=== PATIENT | female | born 1950 | race Caucasian/White ===

== ENCOUNTER → 2017-06-01 12:16 | Outpatient (CLI) | payer MEDICARE, SELFPAY ==
[2017-06-01 12:44] LABS: Absolute Neutrophil Count 1.6 X10^3/uL (2.0-7.7); Basophil% 2.7 % (0-1); Eosinophil# 0.13 X10^3/uL; Eosinophils% 3.5 % (0-5); Hematocrit 38.2 % (37-47); Lymphocyte % 37.5 % (19-41); Mean Corpuscular Hgb 30.7 pg (27.0-32.0); Mean Corpuscular Volume 90.1 fL (81-99); Mean Platelet Vol. 9.8 fl (6.2-12.0); Monocyte# 0.53 X10^3/uL; Monocyte% 14.2 % (0-10); Neutrophil # 1.57 X10^3/uL (2.7-7.7); Neutrophil % 42.1 % (47-70); Platelet Count 208 K/mm3 (150-450); RBC Distribution Width CV 13.3 % (11.6-14.6); RBC Distribution Width SD 43.6 fl (35.1-43.9); Red Blood Count 4.24 M/mm3 (4.2-5.4); White Blood Count 3.7 K/mm3 (4.4-11.0)
[2017-06-01 12:45] LABS: POSITIVE COUNT NO; POSITIVE DIFFERENTIAL NO; POSITIVE MORPHOLOGY NO
[2017-06-01 12:58] LABS: AST(SGOT) 28 U/L (15-37); Alanine Aminotransfer ALT/SGPT 27 U/L (13-56); Albumin, Serum 3.5 g/dL (3.2-5.0); Alkaline Phosphatase 97 U/L (45-117); Anion Gap 7 (5-15); BUN 9 mg/dL (7-18); BUN/Creat Ratio 10.5 RATIO (10-20); Calcium,Total 8.8 mg/dL (8.5-10.1); Chloride 110 mmol/L (98-107); Creatinine, Serum 0.85 mg/dL (0.55-1.02); EST Glomerular Filtration Rate 70 mL/min (>60); Est Glom Filt Rate - Afr Amer 85 mL/min (>60); Globulin 3.4 g/dL (2.2-4.2); Glucose 92 mg/dL (74-106); Protein, Total 6.9 g/dL (6.4-8.2); Sodium Level 144 mmol/L (136-145)
== END ==
PROVIDERS: Family Provider Family Medicine; PCP Family Medicine; Visit Provider Internal Medicine Medical Oncology
DX: C50.911 Malignant neoplasm of unspecified site of right female breast (principal)
CPT/HCPCS: 36415; 80053; 85025

== ENCOUNTER → 2017-06-27 14:37 | Outpatient (CLI) | payer MEDICARE, SELFPAY ==
--- NOTE | 2017-06-27 14:45 | BI_ITS ---
MAMMOGRAPHY - BILATERAL SCREENING REASON FOR EXAM: Female, 66 years old. Routine annual screening examination. PERTINENT HISTORY: Personal history of breast cancer. Daughter with breast cancer. Aunt with breast cancer. Prior right lumpectomy and right axillary node dissection. TECHNIQUE: Digital bilateral breast jamie (3D mammographic acquisition) in the CC and MLO projections. 2-D mediolateral oblique (MLO) and craniocaudad (CC) views of both breasts were obtained. CAD: Full Field Digital Mammography with Computer Added Detection was performed. COMPARISON: Comparison is made with prior study dated June 15, 2016 and July 03, 2015. FINDINGS: Breast Composition: There are scattered areas of fibroglandular density. Since prior study, the patient underwent lumpectomy in the retroareolar region of the right breast as well as axillary node dissection. There is residual postoperative scarring and deformity of the right breast. No new mass lesion or cluster of microcalcification is seen. No other significant abnormalities are identified. BI/SCREENING MAMM (CAD), BILAT IMPRESSION: Status post right lumpectomy. No abnormality is seen. Yearly follow-up mammogram recommended. (A) ASSESSMENT CATEGORY: BIRADS Category 2: Benign. A letter regarding these results will be sent to the patient by the facility within 30 days. Approximately 10% of breast cancers are not detected by mammography. A normal mammogram should not delay biopsy of a clinically suspicious abnormality. [id number] Electronically Signed: Fabricio Prajapati MD at 8:22 EDT Tel [phone], Service support ,
--- NOTE | 2017-06-27 15:17 | BD_ITS ---
STUDY: DUAL ENERGY X-RAY ABSORPTIOMETRY / DXA REASON FOR EXAM: Female, 66 years old. The patient is postmenopausal. Loss of height of 2 inches. TECHNIQUE: Bone Mineral Density (BMD) measurements of lumbar spine and bilateral hips were obtained. COMPARISON: Comparison is made with prior study dated July 01, 2014. FINDINGS: Lumbar Spine (L1-L4): g/cm2 (1.046) / T-score (-1.0) / Z-score (0.7) Findings are suggestive of osteopenia with a low fracture risk. Left Femur Total: g/cm2 (0.805) / T-score (-1.6) / Z-score (-0.2) Left Femoral Neck: g/cm2 (0.750) / T-score (-2.1) / Z-score (-0.4) Right Femur Total: g/cm2 (0.846) / T-score (-1.3) / Z-score (0.1) Right Femoral Neck: g/cm2 (0.734) / T-score (-2.2) / Z-score (-0.6) The T-Scores on the most recent prior examination were: Lumbar Spine (L1-L4): There has been improvement of bone density since the previous examination. Left Femur Total: which represents a worsening of 3.7%. Right Femur Total: which represents an improvement of 1.1%. BD/Dexa Bone Density Study IMPRESSION: The patient is considered osteopenic as outlined below according to World Meek Organization (WHO) criteria with a moderate fracture risk. There has been improvement of bone density since the previous examination. Reference Information: The T-score is the number of standard deviations above or below the standard which is normal for young adults at their peak bone mineral density. The World Health Organization (WHO) interprets the T-scores as follows: Above -1 Normal bone density Between -1 and -2.5 Osteopenia Equal to / or below -2.5 Osteoporosis As a practical clinical guideline, osteopenia may be graded as follows: Mild -1 through -1.5 Moderate -1.6 through -2.0 Severe -2.1 through -2.4 The Z-score is the number of standard deviations above or below age-matched controls. A Z-score of less than -1.5 would be considered abnormal. References: 1. NIH Osteoporosis and Related Bone Diseases http://www.osteo.org 2. International Society for Clinical Densitometry http://www.iscd.org 3. National Osteoporosis Foundation http://www.nof.org Electronically Signed: Fabricio Prajapati MD at 16:05 EDT Tel [phone], Service support ,
== END ==
PROVIDERS: Family Provider Family Medicine; PCP Family Medicine
DX: M81.0 Age-related osteoporosis without current pathological fracture (principal); M85.80 Other specified disorders of bone density and structure, unspecified site; Z78.0 Asymptomatic menopausal state; Z79.811 Long term (current) use of aromatase inhibitors; Z12.31 Encounter for screening mammogram for malignant neoplasm of breast; Z85.3 Personal history of malignant neoplasm of breast
CPT/HCPCS: 77063; 77067; 77080

== ENCOUNTER → 2018-06-28 12:44 | Outpatient (CLI) | payer MEDICARE, SELFPAY ==
[2018-02-05 12:57] VITALS: BMI 31.1
--- NOTE | 2018-06-28 12:49 | BI_ITS ---
MAMMOGRAPHY - BILATERAL SCREENING REASON FOR EXAM: Female, 67 years old. Routine annual screening examination. PERTINENT HISTORY: Personal history of breast cancer. Father with breast cancer. Prior right lumpectomy. TECHNIQUE: Digital bilateral breast jamie (3D mammographic acquisition) in the CC and MLO projections. 2-D mediolateral oblique (MLO) and craniocaudad (CC) views of both breasts were obtained. CAD: Full Field Digital Mammography with Computer Added Detection was performed. COMPARISON: Comparison is made with prior study dated July 03, 2015 and June 15, 2016. FINDINGS: Breast Composition: The breasts are heterogeneously dense, which may obscure small masses. Stable deformity of the right breast with the resection of the right nipple and architectural distortion at the operative site in the retroareolar region. Surgical clips are seen in the right axillary region. No other significant abnormalities are identified. BI/SCREENING MAMM (CAD), BILAT IMPRESSION: Status post right lumpectomy with post surgical scarring. Yearly follow-up mammogram recommended. (A) ASSESSMENT CATEGORY: BIRADS Category 2: Benign. A letter regarding these results will be sent to the patient by the facility within 30 days. Approximately 10% of breast cancers are not detected by mammography. A normal mammogram should not delay biopsy of a clinically suspicious abnormality. [id number] Electronically Signed: Fabricio Prajapati, at 16:01 EDT , Service support ,
== END ==
PROVIDERS: Family Provider Family Medicine; PCP Family Medicine; Referring Provider Nurse Practitioner Family
DX: Z12.31 Encounter for screening mammogram for malignant neoplasm of breast (principal); Z85.3 Personal history of malignant neoplasm of breast
CPT/HCPCS: 77067

== ENCOUNTER → 2018-11-29 15:35 | Outpatient (CLI) | payer MEDICARE, SELFPAY ==
[2018-07-30 13:38] VITALS: BMI 31.6
[2018-11-29 16:46] LABS: Hematocrit 41.4 % (37-47); Mean Corp Hgb Conc 33.8 g/dL (32-36); Mean Corpuscular Hgb 30.9 pg (27.0-32.0); Mean Corpuscular Volume 91.4 fL (81-99); Mean Platelet Vol. 11.2 fl (6.2-12.0); Platelet Count 218 K/mm3 (150-450); RBC Distribution Width CV 13.3 % (11.6-14.6); RBC Distribution Width SD 44.9 fl (35.1-43.9); Red Blood Count 4.53 M/mm3 (4.2-5.4)
[2018-11-29 17:01] LABS: ALB/GLOB Ratio 1.1 RATIO (0.9-2.4); AST(SGOT) 29 U/L (15-37); Alanine Aminotransfer ALT/SGPT 23 U/L (13-56); Albumin, Serum 3.8 g/dL (3.2-5.0); Alkaline Phosphatase 119 U/L (45-117); Anion Gap 7 (5-15); BUN 11 mg/dL (7-18); BUN/Creat Ratio 11.4 RATIO (10-20); Calcium,Total 9.3 mg/dL (8.5-10.1); Chloride 112 mmol/L (98-107); Cholesterol 139 mg/dL (200); Creatinine, Serum 0.96 mg/dL (0.55-1.02); EST Glomerular Filtration Rate 61 mL/min (>60); Est Glom Filt Rate - Afr Amer 74 mL/min (>60); Globulin 3.6 g/dL (2.2-4.2); Glucose 87 mg/dL (74-106); High Density Lipoprotein 63 mg/dL; Potassium 3.4 mmol/L (3.5-5.1); Protein, Total 7.4 g/dL (6.4-8.2); Sodium Level 143 mmol/L (136-145); Triglycerides 68 mg/dL; Very Low Density Lipoprotein 14 mg/dL (5-40)
== END ==
PROVIDERS: Family Provider Family Medicine; PCP Family Medicine; Referring Provider Family Medicine; Visit Provider Family Medicine
DX: Z00.00 Encounter for general adult medical examination without abnormal findings (principal); E78.2 Mixed hyperlipidemia
CPT/HCPCS: 80053; 80061; 85027

== ENCOUNTER → 2018-12-03 13:29 | Outpatient (CLI) | payer MEDICARE, SELFPAY ==
[2018-07-30 13:38] VITALS: BMI 31.6
[2018-12-03 14:00] LABS: Absolute Lymphocyte Count 1.43 X10^3/uL (0.83-4.51); Absolute Neutrophil Count 1.3 X10^3/uL (2.0-7.7); Basophil# 0.08 X10^3/uL; Basophil% 2.3 % (0-1); Eosinophil# 0.19 X10^3/uL; Eosinophils% 5.6 % (0-5); Hematocrit 37.9 % (37-47); Hemoglobin 12.7 g/dL (12.0-15.0); Lymphocyte # 1.43 X10^3/ul (4.0); Lymphocyte % 41.9 % (19-41); Mean Corp Hgb Conc 33.5 g/dL (32-36); Mean Corpuscular Hgb 30.5 pg (27.0-32.0); Mean Corpuscular Volume 90.9 fL (81-99); Mean Platelet Vol. 10.7 fl (6.2-12.0); Monocyte# 0.38 X10^3/uL; Monocyte% 11.1 % (0-10); NRBC Flagged by Analyzer 0 % (0-5); Neutrophil # 1.33 X10^3/uL (2.7-7.7); Neutrophil % 39.1 % (47-70); Platelet Count 202 K/mm3 (150-450); RBC Distribution Width CV 13.2 % (11.6-14.6); RBC Distribution Width SD 44.6 fl (35.1-43.9); Red Blood Count 4.17 M/mm3 (4.2-5.4); White Blood Count 3.4 K/mm3 (4.4-11.0)
[2018-12-03 14:06] LABS: Magnesium 2.1 mg/dL (1.6-2.6); Potassium 3.8 mmol/L (3.5-5.1)
== END ==
PROVIDERS: Family Provider Family Medicine; Visit Provider Family Medicine
DX: D72.819 Decreased white blood cell count, unspecified (principal); E87.6 Hypokalemia
CPT/HCPCS: 83735; 84132; 85025

== ENCOUNTER → 2018-12-06 10:53 | Outpatient (CLI) | payer MEDICARE, SELFPAY ==
[2018-07-30 13:38] VITALS: BMI 31.6
--- NOTE | 2018-12-12 17:08 | STRESSREP_ITS ---
Stress Test Report Date: 12/06/2018 Procedure: Exercise tolerance test Indications: Chest pain Consent: Per the patient Procedure: The patient exercised on a Kranthi protocol for 5 minutes and 30 seconds achieving a peak heart rate of 136 bpm (90 % predicted maximal heart rate) with a peak blood pressure 182/50 mmHg and a peak MET capacity of approximately 7 mET's. The baseline ECG demonstrated normal sinus rhythm. The peak exercise ECG demonstrated about [address] depressions in the inferior and lateral leads. No significant ischemic changes. [There were no cardiac dysrhythmias pretest, during exercise, or recovery]. The functional capacity was considered normal for age. The patient had no complaint of chest discomfort during exercise or recovery. The examination was discontinued secondary to dyspnea. Impression: 1. Technically adequate (percent predicted maximal heart rate greater than 85%) exercise tolerance test 2. Stress test with no significant exercise-induced EKG changes of ischemia or chest pain 3. [There were no cardiac dysrhythmias during exercise or recovery] This note was generated with Numerousation software. It may contain incorrect words, spelling, and punctuation that were not noted in checking the note before signing.
== END ==
PROVIDERS: Family Provider Family Medicine; PCP Family Medicine; Referring Provider Family Medicine; Visit Provider Family Medicine
DX: R07.89 Other chest pain (principal)
CPT/HCPCS: 93017

== ENCOUNTER → 2019-07-01 12:52 | Outpatient (CLI) | payer MEDICARE, SELFPAY ==
[2019-01-28 13:19] VITALS: BMI 31.1
--- NOTE | 2019-07-01 12:53 | BI_ITS ---
MAMMOGRAPHY - BILATERAL SCREENING REASON FOR EXAM: Female, 68 years old. Routine annual screening examination. PERTINENT HISTORY: Personal history of breast cancer. Prior right lumpectomy with radiation treatment. TECHNIQUE: Digital bilateral breast lisa (3D mammographic acquisition) in the CC and MLO projections. 2-D mediolateral oblique (MLO) and craniocaudad (CC) views of both breasts were obtained. CAD: Full Field Digital Mammography with Computer Added Detection was performed. COMPARISON: Comparison is made with prior study dated June 30, 1999 FINDINGS: Breast Composition: There are scattered areas of fibroglandular density. There are no dominant masses or suspicious calcifications. Stable architectural deformity of the retroareolar region of the right breast secondary to prior lumpectomy. This is unchanged. Surgical clips are also seen in the right axillary region. No other significant abnormalities are identified. There has been no significant change since the prior study. BI/SCREEN MAMM (CAD) W/LISA BILAT IMPRESSION: Stable bilateral screening mammogram. Yearly follow-up mammogram recommended. (A) ASSESSMENT CATEGORY: BIRADS Category 2: Benign. A letter regarding these results will be sent to the patient by the facility within 30 days. Approximately 10% of breast cancers are not detected by mammography. A normal mammogram should not delay biopsy of a clinically suspicious abnormality. [id number] Electronically Signed: Fabricio Prajapati, at 14:47 EDT , Service support ,
== END ==
PROVIDERS: Family Provider Family Medicine; PCP Family Medicine; Referring Provider Internal Medicine Medical Oncology; Visit Provider Internal Medicine Medical Oncology
DX: Z12.31 Encounter for screening mammogram for malignant neoplasm of breast (principal); Z85.3 Personal history of malignant neoplasm of breast
CPT/HCPCS: 77063; 77067

== ENCOUNTER → 2020-01-20 09:32 | Outpatient (CLI) | payer MEDICARE, SELFPAY ==
[2019-07-29 12:53] VITALS: BMI 32.9
[2020-01-20 13:47] LABS: Cholesterol 143 mg/dL (200); High Density Lipoprotein 67 mg/dL; Triglycerides 88 mg/dL; Very Low Density Lipoprotein 18 mg/dL (5-40)
== END ==
PROVIDERS: PCP Family Medicine; Referring Provider Nurse Practitioner Primary Care; Visit Provider Nurse Practitioner Primary Care
DX: E78.2 Mixed hyperlipidemia (principal)
CPT/HCPCS: 80061

== ENCOUNTER → 2020-07-15 10:53 | Outpatient (CLI) | payer MEDICARE, SELFPAY ==
[2020-01-27 13:54] VITALS: BMI 31.4
--- NOTE | 2020-07-15 10:55 | BI_ITS ---
MAMMOGRAPHY - BILATERAL SCREENING REASON FOR EXAM: Female, 69 years old. Routine annual screening examination. PERTINENT HISTORY: Personal history of breast cancer. Prior right lumpectomy and radiation treatment. Daughter with breast cancer. Aunt with breast cancer. TECHNIQUE: Digital bilateral breast lisa (3D mammographic acquisition) in the CC and MLO projections. 2-D mediolateral oblique (MLO) and craniocaudad (CC) views of both breasts were obtained. CAD: Full Field Digital Mammography with Computer Added Detection was performed. COMPARISON: Comparison is made with prior study dated 07/01/2019 and 06/28/2018. FINDINGS: Breast Composition: There are scattered areas of fibroglandular density. There are no dominant masses or suspicious calcifications. Stable architectural distortion of the retroareolar region of the right breast secondary to prior lumpectomy surgical clips are also seen in the axillary region of the right breast. Skin thickening overlying the area over region. No other significant abnormalities are identified. There has been no significant change since the prior study. BI/SCRN MAMM (CAD)W/LISA BILAT IMPRESSION: Stable bilateral screening mammogram. Yearly follow-up mammogram recommended. (A) ASSESSMENT CATEGORY: BIRADS Category 2: Benign. A letter regarding these results will be sent to the patient by the facility within 30 days. Approximately 10% of breast cancers are not detected by mammography. A normal mammogram should not delay biopsy of a clinically suspicious abnormality. [id number] Electronically Signed: Fabricio Prajapati MD at 11:59 EDT , Service support ,
--- NOTE | 2020-07-15 10:57 | BD_ITS ---
STUDY: DUAL ENERGY X-RAY ABSORPTIOMETRY / DXA REASON FOR EXAM: Female, 69 years old. V76.12ScreeningBONE DENSITY REASON FOR EXAM TECHNIQUE: Bone Mineral Density (BMD) measurements of lumbar spine and bilateral hips were obtained. COMPARISON: Comparison is made with prior study dated 07/01/2014. FINDINGS: Lumbar Spine (L1-L4): g/cm2 (1.081) / T-score (-0.7) / Z-score (1.0) Findings are suggestive of normal bone density with a low fracture risk. Left Femur Total: g/cm2 (0.790) / T-score (-1.7) / Z-score (-0.2) Left Femoral Neck: g/cm2 (0.713) / T-score (-2.3) / Z-score (-0.6) Right Femur Total: g/cm2 (0.783) / T-score (-1.8) / Z-score (-0.2) Right Femoral Neck: g/cm2 (0.728) / T-score (-2.2) / Z-score (-0.5) The T-Scores on the most recent prior examination were: Lumbar Spine (L1-L4): There has been improvement of bone density since the previous examination. Left Femur Total: which represents a worsening of 1.9%. Right Femur Total: which represents a worsening of 7.4%. BD/Dexa Bone Density Study IMPRESSION: The patient is considered osteopenic as outlined below according to World Meek Organization (WHO) criteria with a high fracture risk. There has been worsening of bone density since the previous examination. Reference Information: The T-score is the number of standard deviations above or below the standard which is normal for young adults at their peak bone mineral density. The World Health Organization (WHO) interprets the T-scores as follows: Above -1 Normal bone density Between -1 and -2.5 Osteopenia Equal to / or below -2.5 Osteoporosis As a practical clinical guideline, osteopenia may be graded as follows: Mild -1 through -1.5 Moderate -1.6 through -2.0 Severe -2.1 through -2.4 The Z-score is the number of standard deviations above or below age-matched controls. A Z-score of less than -1.5 would be considered abnormal. References: 1. NIH Osteoporosis and Related Bone Diseases www osteo.org 2. International Society for Clinical Densitometry www iscd.org 3. National Osteoporosis Foundation www nof.org Electronically Signed: Fabricio Prajapati MD at 14:18 EDT , Service support ,
== END ==
PROVIDERS: PCP Family Medicine; Referring Provider Internal Medicine Medical Oncology; Visit Provider Internal Medicine Medical Oncology
DX: M85.89 Other specified disorders of bone density and structure, multiple sites (principal); Z85.3 Personal history of malignant neoplasm of breast; Z13.820 Encounter for screening for osteoporosis; Z12.31 Encounter for screening mammogram for malignant neoplasm of breast
CPT/HCPCS: 77063; 77067; 77080

== ENCOUNTER → 2021-07-16 | Outpatient (CLI) | payer MEDICARE, SELFPAY ==
--- NOTE | 2021-07-16 14:03 | BI_ITS ---
MAMMOGRAPHY - BILATERAL SCREENING REASON FOR EXAM: Female, 70 years old. Routine annual screening examination. PERTINENT HISTORY: Personal history of breast cancer. Prior right lumpectomy. Daughter with breast cancer. Aunt with breast cancer. TECHNIQUE: Digital bilateral breast lisa (3D mammographic acquisition) in the CC and MLO projections. 2-D mediolateral oblique (MLO) and craniocaudad (CC) views of both breasts were obtained. CAD: Full Field Digital Mammography with Computer Added Detection was performed. COMPARISON: Comparison is made with prior examination 07/15/2020 and 07/01/2019. FINDINGS: Breast Composition: There are scattered areas of fibroglandular density. There are no dominant masses or suspicious calcifications. Once again, the patient is status post lumpectomy in the retroareolar region of the right breast with resultant postoperative scarring and deformity of the breast. Surgical clips are also seen in the right axillary region. No other significant abnormalities are identified. There has been no significant change since the prior study. BI/SCRN MAMM (CAD)W/LISA BILAT IMPRESSION: Stable bilateral screening mammogram. Yearly follow-up mammogram recommended. (A) ASSESSMENT CATEGORY: BIRADS Category 2: Benign. A letter regarding these results will be sent to the patient by the facility within 30 days. Approximately 10% of breast cancers are not detected by mammography. A normal mammogram should not delay biopsy of a clinically suspicious abnormality. [id number] Electronically Signed: Fabricio Prajapati MD at 15:22 EDT ,
== END | disposition home or self-care (01) ==
LOC: OPBI 14:01
PROVIDERS: PCP Family Medicine; Referring Provider Internal Medicine Medical Oncology; Visit Provider Internal Medicine Medical Oncology
DX: Z12.31 Encounter for screening mammogram for malignant neoplasm of breast (principal); Z85.3 Personal history of malignant neoplasm of breast
CPT/HCPCS: 77063; 77067

== ENCOUNTER → 2022-07-19 | Outpatient (CLI) | payer MEDICARE, SELFPAY ==
--- NOTE | 2022-07-19 10:13 | BI_ITS ---
MAMMOGRAPHY - BILATERAL SCREENING REASON FOR EXAM: Female, 71 years old. Routine annual screening examination. PERTINENT HISTORY: Personal history of breast cancer. Prior right lumpectomy and radiation treatment. Daughter with breast cancer. Aunt with breast cancer. TECHNIQUE: Digital bilateral breast lisa (3D mammographic acquisition) in the CC and MLO projections. 2-D mediolateral oblique (MLO) and craniocaudad (CC) views of both breasts were obtained. CAD: Full Field Digital Mammography with Computer Added Detection was performed. COMPARISON: Comparison is made with prior study of July 16, 2021 and July 15, 2020. FINDINGS: Breast Composition: The breasts are heterogeneously dense, which may obscure small masses. There are no dominant masses or suspicious calcifications. The patient is status post lumpectomy in the retroareolar region of the right breast with resultant postoperative scarring and breast deformity. Surgical clips are also seen in the right axilla. There has been no change. No other significant abnormalities are identified. There has been no significant change since the prior study. BI/SCRN MAMM (CAD)W/LISA BILAT IMPRESSION: Stable bilateral screening mammogram. Yearly follow-up mammogram recommended. (A) ASSESSMENT CATEGORY: BIRADS Category 2: Benign. A letter regarding these results will be sent to the patient by the facility within 30 days. Approximately 10% of breast cancers are not detected by mammography. A normal mammogram should not delay biopsy of a clinically suspicious abnormality. [id number] Electronically Signed: Fabricio Prajapati MD at 11:11 EDT ,
--- NOTE | 2022-07-19 10:22 | BD_ITS ---
STUDY: DUAL ENERGY X-RAY ABSORPTIOMETRY / DXA REASON FOR EXAM: Female, 71 years old. SCREENING TECHNIQUE: Bone Mineral Density (BMD) measurements of lumbar spine and bilateral hips were obtained. COMPARISON: Comparison is made with prior study dated July 15, 2020. FINDINGS: Lumbar Spine (L1-L4): g/cm2 (0.998) / T-score (-0.4) / Z-score (1.9) Findings are suggestive of normal bone density with a low fracture risk. Left Femur Total: g/cm2 (0.769) / T-score (-1.4) / Z-score (0.3) Left Femoral Neck: g/cm2 (0.625) / T-score (-2.0) / Z-score (0.0) Right Femur Total: g/cm2 (0.778) / T-score (-1.3) / Z-score (0.4) Right Femoral Neck: g/cm2 (0.587) / T-score (-2.4) / Z-score (-0.3) The T-Scores on the most recent prior examination were: Lumbar Spine (L1-L4): There has been worsening of bone density since the previous examination. Left Femur Total: which represents an improvement of 5.3%. Right Femur Total: which represents an improvement of 7.5%. BD/Dexa Bone Density Study IMPRESSION: The patient is considered osteopenic as outlined below according to World Meek Organization (WHO) criteria with a high fracture risk. There has been improvement of bone density since the previous examination. Reference Information: The T-score is the number of standard deviations above or below the standard which is normal for young adults at their peak bone mineral density. The World Health Organization (WHO) interprets the T-scores as follows: Above -1 Normal bone density Between -1 and -2.5 Osteopenia Equal to / or below -2.5 Osteoporosis As a practical clinical guideline, osteopenia may be graded as follows: Mild -1 through -1.5 Moderate -1.6 through -2.0 Severe -2.1 through -2.4 The Z-score is the number of standard deviations above or below age-matched controls. A Z-score of less than -1.5 would be considered abnormal. References: 1. NIH Osteoporosis and Related Bone Diseases www osteo.org 2. International Society for Clinical Densitometry www iscd.org 3. National Osteoporosis Foundation www nof.org Electronically Signed: Fabricio Prajapati MD at 9:51 EDT ,
== END | disposition home or self-care (01) ==
LOC: OPBD 10:11
PROVIDERS: PCP Family Medicine; Referring Provider Internal Medicine Medical Oncology; Visit Provider Internal Medicine Medical Oncology
DX: M85.89 Other specified disorders of bone density and structure, multiple sites (principal); Z12.31 Encounter for screening mammogram for malignant neoplasm of breast
CPT/HCPCS: 77063; 77067; 77080

== ENCOUNTER → 2023-01-04 | Outpatient (CLI) | payer MEDICARE, SELFPAY ==
[2023-01-04 10:00] LABS: Cholesterol 134 mg/dL (200); High Density Lipoprotein 61 mg/dL; Triglycerides 56 mg/dL; Very Low Density Lipoprotein 11 mg/dL (5-40)
== END | disposition home or self-care (01) ==
PROVIDERS: PCP Internal Medicine; Referring Provider Internal Medicine; Visit Provider Internal Medicine
DX: Z12.11 Encounter for screening for malignant neoplasm of colon (principal); E78.2 Mixed hyperlipidemia
CPT/HCPCS: 36415; 80061; 82274

== ENCOUNTER → 2023-01-06 | Outpatient (CLI) | payer MEDICARE, SELFPAY ==
[2023-01-06 07:57] LABS: Absolute Neutrophil Count 1.6 X10^3/uL (2.0-7.7); Basophil% 2.2 % (0-1); Eosinophil# 0.26 X10^3/uL; Eosinophils% 5.8 % (0-5); Hematocrit 40.1 % (37-47); Hemoglobin 13.7 g/dL (12.0-15.0); Lymphocyte % 44.3 % (19-41); Mean Corp Hgb Conc 34.2 g/dL (32-36); Mean Corpuscular Hgb 31.2 pg (27.0-32.0); Mean Corpuscular Volume 91.3 fL (81-99); Monocyte# 0.59 X10^3/uL; Monocyte% 13.1 % (0-10); NRBC Flagged by Analyzer 0 % (0-5); Neutrophil # 1.56 X10^3/uL (2.7-7.7); Neutrophil % 34.6 % (47-70); Platelet Count 192 K/mm3 (150-450); RBC Distribution Width CV 13.1 % (11.6-14.6); RBC Distribution Width SD 44.2 fl (35.1-43.9); Red Blood Count 4.39 M/mm3 (4.2-5.4); White Blood Count 4.5 K/mm3 (4.4-11.0)
[2023-01-06 08:34] LABS: AST(SGOT) 28 U/L (15-37); Alanine Aminotransfer ALT/SGPT 25 U/L (13-56); Albumin, Serum 3.4 g/dL (3.2-5.0); Alkaline Phosphatase 104 U/L (45-117); Anion Gap 7 (5-15); BUN 7 mg/dL (7-18); BUN/Creat Ratio 8.3 RATIO (10-20); Calcium,Total 9.2 mg/dL (8.5-10.1); Chloride 111 mmol/L (98-107); Creatinine, Serum 0.84 mg/dL (0.55-1.02); EST Glomerular Filtration Rate 70 mL/min (>60); Est Glom Filt Rate - Afr Amer 85 mL/min (>60); Globulin 3.4 g/dL (2.2-4.2); Glucose 96 mg/dL (74-106); LDH 255 U/L (84-246); Potassium 3.6 mmol/L (3.5-5.1); Protein, Total 6.8 g/dL (6.4-8.2); Sodium Level 142 mmol/L (136-145)
[2023-01-06 15:22] LABS: Xtra Tube EP Lab EXTRA TUBE
== END | disposition home or self-care (01) ==
LOC: LAB 07:19
PROVIDERS: PCP Internal Medicine; Referring Provider Internal Medicine Medical Oncology; Visit Provider Internal Medicine Medical Oncology
DX: Z85.3 Personal history of malignant neoplasm of breast (principal)
CPT/HCPCS: 36415; 80053; 83615; 85025

== ENCOUNTER 2023-02-21 09:03 | Day surgery (SDC) | payer MEDICARE, SELFPAY ==
--- NOTE | 2023-02-21 09:37 | PCM.HP.BLA ---
History and Physical Date of Admission: 02/21/23 Intake Vital Signs 01/02/2311:23 01/10/2314:28 01/16/2309:22 Height 5 ft 4.25 in 5 ft 4.25 in 5 ft 4 in Weight: 203 lb 1 oz 200 lb 8 oz BMI 34.5 34.4 BP 148/75 H 146/75 H Blood Pressure Location Rt brachial Rt brachial Position Sitting Sitting Respiration 18 17 Pulse 65 80 Pulse Source Monitor Monitor Temp 98.5 F Pulse Oximetry (%) 95 97 Oxygen Delivery Method room air room air Intake Visit Reasons: Blood in Stool Chief Complaint: blood in stool Is patient in pain?: No Allergies Sulfa (Sulfonamide Antibiotics) Allergy (Intermediate, Verified 01/16/23 09:23) Swelling Medications calcium carbonate 600 mg-vitamin D3 20 mcg (800 unit) tablet (Caltrate with Vitamin D3) 1 ea PO TID 07/12/16 [History Confirmed 01/16/23] [id number] 8 mg-folic 400 mcg-K 50 mcg-lutein 300 mcg tablet (Centrum Silver Women) 1 tab PO DAILY 07/12/16 [History Confirmed 01/16/23] atorvastatin 20 mg tablet 20 mg PO QHS 02/05/18 [History Confirmed 01/16/23] ascorbic acid (vitamin C) 1,000 mg tablet 1,000 mg PO DAILY 01/27/20 [History Confirmed 01/16/23] cranberry 500 mg capsule 500 mg PO BID 09/14/22 [History Confirmed 01/16/23] losartan 25 mg tablet 25 mg PO DAILY #90 tabs 01/02/23 [Rx Confirmed 01/16/23] PFSH Medical History Breast cancer, right Hx: UTI (urinary tract infection) Hyperlipidemia Hypertension Skin cancer Surgical History History of mastectomy Family History Mother Heart disease Myocardial infarction High cholesterol Diabetes Kidney diseaseFather NarcolepsyDaughter Breast cancerAunt Breast cancer OsteoporosisBrother Leukemia, Onset Age: 42Other Skin cancer Suicide attempt Social History household members: spouse current occupational status: retired current occupation: nurses aide Smoking Status: Former smoker quit date: 03/13/90 pack-years: 20 Electronic Cigarette Use: not used alcohol intake: never substance use type: does not use do you feel safe at home: Yes HPI HPI HPI: Patient is a 72-year-old female here for blood in her stool. The patient reports that she does not see any gross blood in the stool but her primary care physician office ordered a fecal occult blood test which was positive. Patient does not have any edema. Patient denies any abdominal pain. ROS General General: Yes breast cancer; No weight change, appetite, fatigue, colon cancer or weakness HEENT HEENT: No difficulty swallowing, eye injury, eye surgery, swollen glands or hoarseness Endo Endocrine: No thyroid disease, diabetes mellitus, thyroid cancer, Hair loss, heat intolerance or cold intolerance Skin Skin: No rash or changing moles Musc Musculoskeletal: Yes back problems and arthritis; No rheumatoid arthritis, gout or joint pain Cardio Cardiovascular: Yes high blood pressure; No murmur, pacemaker, heart disease, atrial fibrillation, heart attack, heart stent, palpitations, shortness of breat with exertion or chest pain Psych Psychiatric: No depression, anxiety or hearing voices Resp Respiratory: Yes shortness of breath, No sleep apnea, No cough, No COPD, No asthma, No emphysema and No wheezing Gastro Gastrointestinal: No abdominal pain, No nausea or vomiting, No diarrhea, No constipation, Yes blood in stool, No acid reflux, No hemorrhoids, No ulcers, No gallbladder problem and No black,tarry stools Neo Hematologic: No blood thinners, No blood disorders, No bleeding, No anemia and No blood clots Neuro Neurologic: No system reviewed and no additional complaints, except as documented, No as per HPI, No abnormal gait, No abnormal hearing, No abnormal movements, No abnormal speech, No behavioral changes, No burning sensations, No confusion, No convulsions, No disequilibrium, No dizziness, No localized weakness, No frequent falls, No headache(s), No lack of coordination, No loss of vision, No memory loss, No numbness, No other visual disturbances, No radicular pain, No restless legs, No sensory deficit, No syncope, No tingling, No tremor(s), No weakness and No other Exam Const General: cooperative Orientation: alert and oriented x3 HENMT Head: normal to inspection Neck Neck: normal visual inspection and full ROM Chest Chest palpation & inspection: normal inspection of the chest Resp Effort & Inspection: normal respiratory effort Auscultation: clear to auscultation bilaterally Cardio Rate: regular rate Rhythm: regular rhythm GI Inspection: non-distended Palpation: soft and nontender Skin General: no rashes or lesions noted Neuro General: patient alert and patient oriented x3 Extrem General: full ROM Psych Appearance: grossly normal Mental Status: mental status grossly normal Assessment and Plan Assessment and Plan (1) Blood in stool: Status: Acute Plan: Patient has positive fecal occult blood test. She has never had a colonoscopy. I will plan for colonoscopy. I explained endoscopy in detail to the patient. I explained the risks including but not limited to stroke or heart attack with anesthesia, perforation of the GI tract, bleeding, infection. I explained that any of these could necessitate further emergency surgery. The patient understands and all questions were answered sufficiently. The patient wishes to proceed with procedure. Napoleon Francois MD Pager: [facility] [address] [place] [address], [address] [place] [address] Office: I have examined the patient and the H&P has been reviewed. There are no clinical changes since date of exam.
[2023-02-21 09:48] VITALS: BP 133/60; PULSE 78; RESP 16; TEMP 36.6; O2SAT 97; BMI 33.7
[2023-02-21] MEDS: Lactated Ringers 1,000 ML 15 ML IV (09:51)
[2023-02-21 10:17] VITALS: BP 117/61; BP 133/60; PULSE 80; RESP 16; TEMP 36.2; O2SAT 96
--- NOTE | 2023-02-21 10:19 | OP.COLON_ITS ---
Patient Name: Gretchen Yoder Procedure Date: 02/21/2023 9:42 AM Date of : 1950 Age: 72 Procedure: Colonoscopy Indications: Positive fecal immunochemical test Providers: Napoleon Francois MD Medicines: Monitored Anesthesia Care Patient Profile: This is a 72 year old female. Refer to note in patient chart for documentation of history and physical. Last Colonoscopy: none. The patient's first colonoscopy is today. Complications: No immediate complications. Procedure: Pre-Anesthesia Assessment: - Prior to the procedure, a History and Physical was performed, and patient medications and allergies were reviewed. The patient's tolerance of previous anesthesia was also reviewed. The risks and benefits of the procedure and the sedation options and risks were discussed with the patient. All questions were answered, and informed consent was obtained. Prior Anticoagulants: The patient has taken no anticoagulant or antiplatelet agents. After reviewing the risks and benefits, the patient was deemed in satisfactory condition to undergo the procedure. After I obtained informed consent, the scope was passed under direct vision. Throughout the procedure, the patient's blood pressure, pulse, and oxygen saturations were monitored continuously. The Colonoscope was introduced through the anus and advanced to the cecum, identified by appendiceal orifice and ileocecal valve. The colonoscopy was performed without difficulty. The patient tolerated the procedure well. The quality of the bowel preparation was good. The ileocecal valve, appendiceal orifice, and rectum were photographed. Scope In: 10:03:21 AM Scope Withdrawal Time 0 hours 5 minutes 13 seconds Scope Out: 10:13:35 AM Total Procedure Duration Time 0 hours 10 minutes 14 seconds Findings: The entire examined colon appeared normal on direct and retroflexion views. Impression: - The entire examined colon is normal on direct and retroflexion views. - No specimens collected. Recommendation: - Discharge patient to home. - Resume previous diet. - Continue present medications. - Repeat colonoscopy is not recommended due to current age (66 years or older) for screening purposes. Procedure Code(s): --- Professional --- 71459, Colonoscopy, flexible; diagnostic, including collection of specimen(s) by brushing or washing, when performed (separate procedure) Diagnosis Code(s): --- Professional --- R19.5, Other fecal abnormalities CPT copyright 2022 [employer]. All rights reserved. The codes documented in this report are preliminary and upon rn burn review may be revised to meet current compliance requirements. Napoleon Francois MD 02/21/2023 10:19:00 AM This report has been signed electronically. Number of Addenda: 0 Note Initiated On: 02/21/2023 9:42 AM
--- NOTE | 2023-02-21 10:19 | OP.CCLET_ITS ---
02/21/2023 Doris Gonzalez Md Re : Colonoscopy procedure for Gretchen Yoder Dear Lisa This procedure was performed on Tuesday, February 21, 2023. My impressions and recommendations are as follows: Impressions : - The entire examined colon is normal on direct and retroflexion views. - No specimens collected. Recommendations : - Discharge patient to home. - Resume previous diet. - Continue present medications. - Repeat colonoscopy is not recommended due to current age (66 years or older) for screening purposes. My findings are described in the full procedure note, which is enclosed. If I can be of further assistance, please feel free to contact me at Doctor phone number(s): , Work: . Sincerely, Napoleon Francois MD 02/21/2023 10:19:00 AM This report has been signed electronically.
[2023-02-21 10:20] VITALS: BP 120/62; BP 133/60; PULSE 79; RESP 18; O2SAT 97
[2023-02-21 10:25] VITALS: BP 121/60; BP 133/60; PULSE 74; RESP 18; O2SAT 96
[2023-02-21 10:30] VITALS: BP 120/74; BP 133/60; PULSE 74; RESP 18; TEMP 36.4; O2SAT 96
[2023-02-21 10:50] VITALS: BP 133/60
== END 2023-02-21 10:58 | disposition home or self-care (01) ==
LOC: EN 09:07 → AC 09:09
PROVIDERS: PCP Internal Medicine; Referring Provider Internal Medicine; Visit Provider Surgery
PROC: 0DJD8ZZ Inspection of Lower Intestinal Tract, Via Natural or Artificial Opening Endoscopic (ICD-10-PCS; CPT 45378; principal; 2023-02-21 10:10)
DX: K92.1 Melena (principal); I10 Essential (primary) hypertension; E78.5 Hyperlipidemia, unspecified; Z79.899 Other long term (current) drug therapy; Z87.891 Personal history of nicotine dependence
CPT/HCPCS: 45378; J7120; J2405

== ENCOUNTER → 2023-07-21 | Outpatient (CLI) | payer MEDICARE, SELFPAY ==
--- NOTE | 2023-07-21 13:30 | BI_ITS ---
MAMMOGRAPHY - BILATERAL SCREENING REASON FOR EXAM: Female, 72 years old. Routine annual screening examination. PERTINENT HISTORY: Personal history of breast cancer. Prior right lumpectomy and radiation. Daughter with breast cancer. TECHNIQUE: Digital bilateral breast lisa (3D mammographic acquisition) in the CC and MLO projections. 2-D mediolateral oblique (MLO) and craniocaudad (CC) views of both breasts were obtained. CAD: Full Field Digital Mammography with Computer Added Detection was performed. COMPARISON: Comparison is made with prior study July 19, 2022 and July 16, 2021. FINDINGS: Breast Composition: The breasts are heterogeneously dense, which may obscure small masses. There are no dominant masses or suspicious calcifications. Once again, the patient is status post lumpectomy in the retroareolar region of the right breast with resultant postoperative breast deformity and scarring. Surgical clips are also seen in the right axilla. No other significant abnormalities are identified. There has been no significant change since the prior study. BI/SCRN MAMM (CAD)W/LISA BILAT IMPRESSION: Stable bilateral screening mammogram. Yearly follow-up mammogram recommended. (A) ASSESSMENT CATEGORY: BIRADS Category 2: Benign. A letter regarding these results will be sent to the patient by the facility within 30 days. Approximately 10% of breast cancers are not detected by mammography. A normal mammogram should not delay biopsy of a clinically suspicious abnormality. [id number] Electronically Signed: Fabricio Prajapati MD at 15:19 EDT ,
== END | disposition home or self-care (01) ==
LOC: OPBI 13:29
PROVIDERS: PCP Internal Medicine; Referring Provider Internal Medicine Medical Oncology; Visit Provider Internal Medicine Medical Oncology
DX: Z12.31 Encounter for screening mammogram for malignant neoplasm of breast (principal); Z85.3 Personal history of malignant neoplasm of breast
CPT/HCPCS: 77063; 77067

== ENCOUNTER → 2023-11-30 | Outpatient (CLI) | payer MEDICARE, SELFPAY ==
[2023-11-30 07:49] LABS: Absolute Lymphocyte Count 1.55 X10^3/uL (0.83-4.51); Absolute Neutrophil Count 1.5 X10^3/uL (2.0-7.7); Basophil# 0.08 X10^3/uL; Basophil% 2.2 % (0-1); Eosinophil# 0.12 X10^3/uL; Eosinophils% 3.3 % (0-5); Hematocrit 40.2 % (37-47); Hemoglobin 13.6 g/dL (12.0-15.0); Lymphocyte # 1.55 X10^3/ul (0.83-4.51); Lymphocyte % 42.8 % (19-41); Mean Corp Hgb Conc 33.8 g/dL (32-36); Mean Corpuscular Hgb 30.8 pg (27.0-32.0); Mean Platelet Vol. 10.3 fl (6.2-12.0); NRBC Flagged by Analyzer 0 % (0-5); Neutrophil # 1.46 X10^3/uL (2.7-7.7); Neutrophil % 40.4 % (47-70); Platelet Count 203 K/mm3 (150-450); RBC Distribution Width CV 13.2 % (11.6-14.6); RBC Distribution Width SD 44.6 fl (35.1-43.9); Red Blood Count 4.42 M/mm3 (4.2-5.4); White Blood Count 3.6 K/mm3 (4.4-11.0)
[2023-11-30 08:37] LABS: AST(SGOT) 26 U/L (15-37); Alanine Aminotransfer ALT/SGPT 24 U/L (13-56); Albumin, Serum 3.4 g/dL (3.2-5.0); Alkaline Phosphatase 100 U/L (45-117); Anion Gap 4 (5-15); BUN 9 mg/dL (7-18); BUN/Creat Ratio 10.4 RATIO (10-20); Calcium,Total 9.3 mg/dL (8.5-10.1); Chloride 113 mmol/L (98-107); Cholesterol 139 mg/dL (200); Creatinine, Serum 0.86 mg/dL (0.55-1.02); EST Glomerular Filtration Rate 68 mL/min (>60); Est Glom Filt Rate - Afr Amer 82 mL/min (>60); Globulin 3.3 g/dL (2.2-4.2); Glucose 91 mg/dL (74-106); High Density Lipoprotein 66 mg/dL; Potassium 3.8 mmol/L (3.5-5.1); Protein, Total 6.7 g/dL (6.4-8.2); Sodium Level 144 mmol/L (136-145); Triglycerides 58 mg/dL; Very Low Density Lipoprotein 12 mg/dL (5-40)
== END | disposition home or self-care (01) ==
LOC: LAB 06:58
PROVIDERS: Physician Assistant; PCP Internal Medicine; Referring Provider Internal Medicine; Visit Provider Internal Medicine
DX: I10 Essential (primary) hypertension (principal); E78.5 Hyperlipidemia, unspecified
CPT/HCPCS: 36415; 80053; 80061; 84443; 85025

== ENCOUNTER → 2024-01-05 | Outpatient (CLI) | payer MEDICARE, SELFPAY ==
--- NOTE | 2024-01-05 12:21 | US_ITS ---
INDICATION: family history of thyroid cancer EXAMINATION: Ultrasound US Thyroid (eg thyroid, parathyroid, parotid) TECHNIQUE: Sheehan scale and color doppler imaging was performed of the thyroid gland. COMPARISON: No relevant prior comparison study available FINDINGS: RIGHT THYROID LOBE: 4.1 x 1.4 x 1.8 cm. The gland is heterogenous and contains multiple nodules. There is a complex 0.6 x 0.5 x 0.6 cm nodule within the mid gland no internal vascularity. [There is a cystic 0.8 x 0.6 x 0.9 cm nodule within the mid pole. There is a complex ill-defined 0.8 x 0.7 x 0.6 cm nodule within the midpole which demonstrates no significant internal vascularity. LEFT THYROID LOBE: 4.7 x 2.0 x 1.7 cm. The gland is heterogenous wall nodules. There is a predominantly anechoic 0.6 x 0.4 x 0.5 cm nodule within the upper pole. There is an ill-defined solid appearing 0.9 x 0.7 x 0.8 cm nodule with mild vascularity within the lower pole. There is an adjacent hyperechoic 0.6 x 0.5 x 0.5 cm echogenic nodule. ISTHMUS: 0.3 cm. US/Thyroid IMPRESSION: Enlarged and heterogenous thyroid gland associated with multiple bilateral nodules. Electronically Signed: Neeru Melo MD at 10:04 EDT ,
== END | disposition home or self-care (01) ==
LOC: US 12:21
PROVIDERS: PCP Internal Medicine; Referring Provider Internal Medicine; Visit Provider Internal Medicine
DX: Z00.00 Encounter for general adult medical examination without abnormal findings (principal); Z80.8 Family history of malignant neoplasm of other organs or systems
CPT/HCPCS: 76536

== ENCOUNTER → 2024-07-23 | Outpatient (CLI) | payer MEDICARE, SELFPAY ==
--- NOTE | 2024-07-23 12:44 | BI_ITS ---
EXAM: SCRN MAMM (CAD)W/LISA BILAT DATE: 07/23/2024 CLINICAL HISTORY: F, Age 73 y/o , Z12.31 - ENCOUNTER FOR SCREENING MAMMOGRAM BREAST CANCER RISK ASSESSMENT: Not reported TECHNIQUE: Bilateral screening digital breast tomosynthesis with 2D and 3D images. Computer aided detection. COMPARISON: None available FINDINGS: TISSUE DENSITY: The breast tissue is heterogenously dense, which may obscure small masses. Bilateral Breast Mammographic Findings: No suspicious masses, calcifications or other abnormalities are identified. BI/SCRN MAMM (CAD)W/LISA BILAT IMPRESSION: OVERALL FINAL ASSESSMENT: BIRADS 1 NEGATIVE RECOMMENDATION: Routine annual follow-up in 1 Year A letter with findings and recommendations will be mailed to the patient. Reading Location: [id number]
--- NOTE | 2024-07-23 12:49 | BD_ITS ---
PROCEDURE: DEXA BONE DENSITY STUDY 07/23/2024 REASON FOR EXAM: SCREENING-HX OF BREAST CA F, age 73 y/o . Postmenopausal. TECHNIQUE: DXA scan of sites with data reported below. [facility]ENCE LINKS: [facility] COMPARISON: Prior study dated July 19, 2022. FINDINGS: BMD and T-SCORES Lumbar spine: 1.047 g/cm2, T-score 0.0 Levels: L1 through L4 Change from prior: Improvement by 4.9%. Left femoral neck: 0.588 g/cm2, T-score -2.4 Femoral neck comparison data not recommended for monitoring change. Left total hip: 0.721 g/cm2, T-score -1.8 Change from prior: Worsening by 6.2%. Right femoral neck: 0.546 g/cm2, T-score -2.7 Femoral neck comparison data not recommended for monitoring change. Right total hip: 0.727 g/cm2, T-score -1.8 Change from prior: Worsening by 6.5%. The World Health Organization has defined the following categories based on bone density: Normal bone density: T-score equal to or greater than -1.0 Osteopenia: T-score between -1.0 and -2.5 Osteoporosis: T-score equal to or less than -2.5 The patient does meet the pharmacological treatment recommendations for prevention of osteoporosis. BD/Dexa Bone Density Study IMPRESSION: OSTEOPOROSIS. Recommend follow-up as clinically warranted. Reading Location: [id number]
== END | disposition home or self-care (01) ==
LOC: OPBD 12:42
PROVIDERS: PCP Internal Medicine; Referring Provider Internal Medicine Medical Oncology; Visit Provider Internal Medicine Medical Oncology
DX: Z12.31 Encounter for screening mammogram for malignant neoplasm of breast (principal); Z78.0 Asymptomatic menopausal state
CPT/HCPCS: 77063; 77067; 77080

== ENCOUNTER → 2025-01-03 | Outpatient (CLI) | payer MEDICARE, SELFPAY | END | disposition home or self-care (01) | LOC: US 12:35 | PROVIDERS: PCP Internal Medicine; Referring Provider Internal Medicine; Visit Provider Internal Medicine | DX: E04.1 Nontoxic single thyroid nodule (principal) | CPT/HCPCS: 76536 ==

== ENCOUNTER → 2025-02-25 | Outpatient (CLI) | payer MEDICARE, SELFPAY ==
--- NOTE | 2025-02-25 14:55 | CT_ITS ---
PROCEDURE: LIMITED CHEST CT CARDIAC ONLY 02/25/2025 REASON FOR EXAM: SCREENING TECHNIQUE: Procedure Code: [id number] Modality: CT Procedure: LIMITED CHEST CT CARDIAC ONLY One or more dose reduction techniques were used (e.g., Automated exposure control, adjustment of the mA and/or kV according to patient size, use of iterative reconstruction technique). RADIATION DOSE SUMMARY: CTDlvol: 12.19 mGy DLP: 195.04 mGycm COMPARISON: None. CT/Limited Chest CT Cardiac Only IMPRESSION: [id number] aortic calcification is seen. Limited imaging of the lungs demonstrates no acute process. No pleural effusion or pneumothorax is seen in visualized areas. No adenopathy is noted. The visualized upper abdomen demonstrates no significant abnormality. Reading Location: [place] [id number]
--- NOTE | 2025-02-25 19:12 | CA.SCORE ---
Calcium Scoring Date of Study:: 02/25/25 Indications Indications: Family history Coronary Calcium Scoring: High-resolution Computed Tomographic imaging of the chest was performed on [02/25/2025], with particular attention paid to the coronary arteries. Images from the examination were analyzed for the presence and extent of coronary artery calcification , using coronary calcium quantification software. The patient tolerated the procedure well and there were no complications. The results of the coronary calcification analysis are provided below. Findings Coronary Artery Left Main (LM): 23.6 Left Anterior Descending (LAD): 59.8 Left Circumflex (LCX): 63.2 Right Coronary Artery (RCA): 42.5 Total Agatston Score: 189.1 Percentile Rankin-75 Calcium Scoring Interpretation: Different methods to categorize the overall amount of coronary plaque. Overall amount CAC SIS Visual of coronary plaque P1 Mild -100 <2 1-2 vessels with mild amount of plaque P2 Moderate 101-300 3-4 1-2 vessels with moderate amount, 3 vessels with mild amount of plaque P3 Severe 301-999 5-7 3 vessels with moderate amount, 1 vessel with severe amount of plaque P4 Extensive >1000 >8 2-3 vessels with severe amount of plaque Calcium Score: Moderate: 1-2 vessels w/moderate amt, 3 vessels w/mild amt of plaque Conclusion: 3 vessels with mild amount of plaque present.
== END | disposition home or self-care (01) ==
PROVIDERS: PCP Internal Medicine; Referring Provider Internal Medicine; Visit Provider Internal Medicine
DX: Z13.6 Encounter for screening for cardiovascular disorders (principal)
CPT/HCPCS: 75571; 76380